=== PATIENT | female | born 1990 | race African-American/Black ===

== ENCOUNTER 2019-05-31 16:32 | Emergency (ER) | payer SELFPAY ==
[~2019-05-31] VITALS: Ht 167.6 cm; Wt 109.8 kg
[2019-05-31 16:40] VITALS: BP 130/91
--- NOTE | 2019-05-31 16:55 | NUR ---
STREP SWAB COLLECTED AND SENT TO STAT [facility]
== END 2019-05-31 17:48 | disposition home or self-care (01) ==
LOC: ER 16:32
DX: J30.9 Allergic rhinitis, unspecified (principal); Z88.6 Allergy status to analgesic agent
CPT/HCPCS: 86403-TC; 87070-TC

== ENCOUNTER 2019-09-11 22:50 | Emergency (ER) | payer MEDICAID ==
[~2019-09-11] VITALS: Ht 167.6 cm; Wt 100.7 kg
--- NOTE | 2019-09-11 23:38 | NUR ---
C/C CHEST TIGHTNESS, PRESSURE [id number], +N/-V/-D, INTERMITTENT DIZZINESS TO ER BED 4, EKG BEING DONE, CONNECTED TO MONITOR, AWAITING MED EVAL
[2019-09-11] MEDS ORDERED: ACETAMINOPHEN ES 500 MG TABLET ONE (23:58)
[2019-09-12] MEDS ORDERED: ACETAMINOPHEN 325 MG TABLET PO ONE
--- NOTE | 2019-09-12 00:59 | NUR ---
Patient discharged to home in stable condition. Written and verbal after care instructions given. Patient verbalizes understanding of instruction.
[2019-09-12 01:00] VITALS: BP 127/72
== END 2019-09-12 01:00 | disposition home or self-care (01) ==
LOC: ER 22:52
DX: R07.89 Other chest pain (principal); F17.210 Nicotine dependence, cigarettes, uncomplicated; Z90.89 Acquired absence of other organs; Z88.5 Allergy status to narcotic agent
CPT/HCPCS: 71045-TC